=== PATIENT | male | born 1965 | race Caucasian/White ===

== ENCOUNTER 2019-11-06 22:45 | Emergency (ER) | payer SELFPAY ==
[2019-11-06] MEDS ORDERED: DEXTROSE 50%, 50ML SYRINGE ONE (23:04)
[2019-11-06] MEDS ORDERED: CODE BLUE RESPONSE XX ONE (23:30)
== END 2019-11-07 01:18 | disposition expired ==
LOC: ED 11-07 01:05
DX: I46.9 Cardiac arrest, cause unspecified (principal); F10.20 Alcohol dependence, uncomplicated; F17.200 Nicotine dependence, unspecified, uncomplicated; Y90.9 Presence of alcohol in blood, level not specified
CPT/HCPCS: 92950; 99285